=== PATIENT | male | born 2000 | race Caucasian/White ===

== ENCOUNTER 2020-01-03 08:56 | Emergency (ER) | payer MEDICAID, OTHER ==
[~2020-01-03] VITALS: Ht 165.1 cm; Wt 87.1 kg
[2020-01-03 09:15] VITALS: BP 121/72
== END 2020-01-03 09:57 | disposition home or self-care (01) ==
LOC: ER 08:56
DX: L05.91 Pilonidal cyst without abscess (principal); B96.89 Other specified bacterial agents as the cause of diseases classified elsewhere